=== PATIENT | female | born 1985 | race Caucasian/White ===

== ENCOUNTER 2018-10-16 19:30 | Emergency (ER) | payer OTHER ==
[~2018-10-16] VITALS: Ht 160 cm; Wt 87.3 kg
[~2018-10-16 19:30] MED LIST: IBUP-1542 PO; ONDA8TAB14 PO
[2018-10-16 19:58] VITALS: BP 118/87; PULSE 85; RESP 18; Ht 160 cm; Wt 87.3 kg
== END 2018-10-16 23:25 | disposition left against medical advice (07) ==
LOC: FTE 19:30
DX: Z53.21 Procedure and treatment not carried out due to patient leaving prior to being seen by health care provider (principal)

== ENCOUNTER 2018-11-30 19:31 | Emergency (ER) | payer OTHER ==
[~2018-11-30] VITALS: Ht 160 cm; Wt 81.5 kg
[2018-11-30 19:39] VITALS: Ht 160 cm; Wt 81.5 kg
[2018-11-30] MEDS ORDERED: SOD CHLORIDE 0.9% 1,000 ML IV STA (19:58)
[2018-11-30] MEDS ORDERED: METOCLOPRAMIDE 10 MG INJ IV ONE (20:00)
[2018-11-30] MEDS ORDERED: HYDROCODONE/APAP (10/325) TAB PO ONE (20:30)
[2018-11-30] MEDS ORDERED: METO5TAB58 PO (21:09)
--- NOTE | 2018-11-30 21:13 | ERD ---
ER Documentation Chief Complaint Chief Complaint Vomiting and unable to keep anything down hx achalasia HPI 33-year-old female history of achalasia of the esophagus who presents with nausea, pain and vomiting. She is set up for surgery for intervention. Presentation today is consistent with acute exacerbation of chronic issues. Pain is approximately 6 out of 10. She ran out of her Ralston and states that she would like to take Ralston for her pain. ROS All systems reviewed and are negative except as per history of present illness. Medications Home Meds Active Scripts Metoclopramide* (Reglan*) 5 Mg Tablet, 5 MG PO Q6H PRN for NAUSEA AND OR VOMITING, #20 TAB Prov:DIEGO HARRIS MD 11/30/18 Ibuprofen* (Motrin*) 600 Mg Tab, 600 MG PO Q6 for headache, #30 TAB Prov:HALINA RIVERA 09/24/18 Ondansetron (Ondansetron Odt) 8 Mg Tab.rapdis, 8 MG PO Q6H PRN for NAUSEA AND/OR VOMITING, #20 TAB Prov:HALINA RIVERA 09/24/18 Allergies Allergies: Coded Allergies: acetaminophen (Verified Allergy, Unknown, 11/30/18) haloperidol (Verified Allergy, Unknown, 11/30/18) hydrocodone (Verified Allergy, Unknown, 11/30/18) PMhx/Soc Medical and Surgical Hx: pt denies Surgical Hx Hx Miscellaneous Medical Probl: Yes (achalasia) Hx Alcohol Use: No Hx Substance Use: No Hx Tobacco Use: No Smoking Status: Never smoker FmHx Family History: No diabetes Physical Exam Vitals Vital Signs Date Temp Pulse Resp B/P (MAP) Pulse Ox O2 O2 Flow FiO2 Time Delivery Rate 11/30/18 97.4 84 16 117/60 100 19:39 (79) Physical Exam General: Well developed, well nourished, no acute distress Head: Normocephalic, atraumatic. Eyes: Pupils equally reactive, EOM intact ENT: Moist mucous membranes Neck: Supple, no lymphadenopathy Respiratory: Lungs clear bilaterally, no distress Cardiovascular: RRR, no murmurs, rubs, or gallops Abdominal: Soft, non-tender, non-distended, no peritoneal signs : Deferred MSK: No edema, no unilateral swelling, 5/5 strength Neurologic: Alert and oriented, moving all extremities, normal speech, no focal weakness, no cerebellar signs Skin: No rash Psych: Normal mood Result Diagram: 11/30/18200411/30/182004 Results 24 hrs Laboratory Tests Test 11/30/18 20:05 White Blood Count 12.6 10^3/ul Red Blood Count 5.16 10^6/ul Hemoglobin 11.1 g/dl Hematocrit 34.3 % Mean Corpuscular Volume 66.5 fl Mean Corpuscular Hemoglobin 21.5 pg Mean Corpuscular Hemoglobin Concent 32.4 g/dl Red Cell Distribution Width 16.6 % Platelet Count 272 10^3/UL Mean Platelet Volume 12.0 fl Immature Granulocytes % 0.300 % Neutrophils % 70.9 % Lymphocytes % 21.6 % Monocytes % 6.2 % Eosinophils % 0.7 % Basophils % 0.3 % Nucleated Red Blood Cells % 0.0 /100WBC Immature Granulocytes # 0.040 10^3/ul Neutrophils # 8.9 10^3/ul Lymphocytes # 2.7 10^3/ul Monocytes # 0.8 10^3/ul Eosinophils # 0.1 10^3/ul Basophils # 0.0 10^3/ul Nucleated Red Blood Cells # 0.0 10^3/ul Sodium Level 141 mmol/L Potassium Level 3.4 mmol/L Chloride Level 106 mmol/L Carbon Dioxide Level 23 mmol/L Anion Gap 12 Blood Urea Nitrogen 9 mg/dl Creatinine 0.83 mg/dl Est Glomerular Filtrat Rate mL/min > 60 mL/min Glucose Level 96 mg/dl Calcium Level 9.5 mg/dl Current Medications Medications Dose Sig/Ying Start Time Status Last (Trade) Ordered Route PRN Stop Time Admin Dose Reason Admin Sodium 1,000 ml @ Q1H STAT 11/30/18 DC 11/30/18 Chloride 1,000 mls/hr IV 19:58 20:12 11/30/18 20:57 5 mg ONCE ONCE 11/30/18 DC 11/30/18 Metoclopramid IV 20:00 20:12 e HCl 11/30/18 20:01 (Reglan) 1 tab ONCE ONCE 11/30/18 DC 11/30/18 Acetaminophen PO 20:30 20:37 / 11/30/18 20:31 Hydrocodone Bitart (Ralston ()) Procedures/MDM EKG, MONITORS, & DIAGNOSTIC IMAGING: EKG: I reviewed and interpreted a 12-lead EKG. Rhythm: Normal sinus rhythm ST Changes: No contiguous ST segment elevations T waves: No contiguous T wave inversions Impression: [No evidence of acute cardiac ischemia] LAB INTERPRETATION: I reviewed the laboratory testing and it shows [no evidence of acute process] MEDICAL DECISION MAKING: Patient presents with persistent nausea and vomiting in the setting of achalasia consistent with baseline. The patient is additionally asking for narcotic pain medications. Patient likely has chronic pain issues. The patient has a benign abdominal exam without signs or symptoms concerning for acute intraconal process. I do not believe this is consistent with cardiac etiology. EKG at triage ordered reflexively is normal. Labs to r/o dehydration appropriate. ER COURSE: * IVF and reglan and norco given. Pain improved, using cell phone without issues. * Labs reassuring, safe for dc CONSULTATION: [None] DISPOSITION PLAN: DC home with pmd follow up. GI follow up as already planned DC meds: Reglan Departure Diagnosis: Primary Impression: Achalasia Additional Impression: Nausea and vomiting Vomiting type: unspecified Vomiting Intractability: non-intractable Qualified Codes: R11.2 - Nausea with vomiting, unspecified Condition: Stable Patient Instructions: Nausea and Vomiting-Adult Referrals: COMMUNITY CLINICS YOU HAVE RECEIVED A MEDICAL SCREENING EXAM AND THE RESULTS INDICATE THAT YOU DO NOT HAVE A CONDITION THAT REQUIRES URGENT TREATMENT IN THE EMERGENCY DEPARTMENT. FURTHER EVALUATION AND TREATMENT OF YOUR CONDITION CAN WAIT UNTIL YOU ARE SEEN IN YOUR DOCTORS OFFICE WITHIN THE NEXT 1-2 DAYS. IT IS YOUR RESPONSIBILITY TO MAKE AN APPOINTMENT FOR FOLOW-UP CARE. IF YOU HAVE A PRIMARY DOCTOR --you should call your primary doctor and schedule an appointment IF YOU DO NOT HAVE A PRIMARY DOCTOR YOU CAN CALL OUR PHYSICIAN REFERRAL HOTLINE AT IF YOU CAN NOT AFFORD TO SEE A PHYSICIAN YOU CAN CHOSE FROM THE FOLLOWING [facility] [address] [place]. [facility] [address] [facility]. [facility] [address] [facility] [address] [facility] [address] [facility] [address] [facility]. [facility] YOU HAVE RECEIVED A MEDICAL SCREENING EXAM AND THE RESULTS INDICATE THAT YOU DO NOT HAVE A CONDITION THAT REQUIRES URGENT TREATMENT IN THE EMERGENCY DEPARTMENT. FURTHER EVALUATION AND TREATMENT OF YOUR CONDITION CAN WAIT UNTIL YOU ARE SEEN IN YOUR DOCTORS OFFICE WITHIN THE NEXT 1-2 DAYS. IT IS YOUR RESPONSIBILITY TO MAKE AN APPOINTMENT FOR FOLOW-UP CARE. IF YOU HAVE A PRIMARY DOCTOR --you should call your primary doctor and schedule and appointment IF YOU DO NOT HAVE A PRIMARY DOCTOR YOU CAN CALL OUR PHYSICIAN REFERRAL HOTLINE AT . IF YOU CAN NOT AFFORD TO SEE A PHYSICIAN YOU CAN CHOSE FROM THE FOLLOWING [facility] INSTITUTIONS: [facility] [address] [place] [address] [facility] [address] [place], [place] [id number] [place] [address] [address] [place] [address] Additional Instructions: Call your primary care doctor TOMORROW for an appointment during the next 1 WEEK.Tell the hand clipper that you were referred from this facility.See the doctor sooner or return here if your condition worsens before your appointment time. DIEGO HARRIS MD Nov 30, 2018 21:13
[2018-11-30 22:32] VITALS: BP 106/70; PULSE 70; RESP 16
== END 2018-11-30 22:33 | disposition home or self-care (01) ==
LOC: E/R 19:31
DX: K22.0 Achalasia of cardia (principal); R11.2 Nausea with vomiting, unspecified
CPT/HCPCS: 36415; 80048; 81025; 85025; 93005; 96374; 99284; J2765; J7030

== ENCOUNTER 2018-12-03 14:01 | Emergency (ER) | payer OTHER ==
[~2018-12-03] VITALS: Ht 162.6 cm; Wt 82.5 kg
[~2018-12-03 14:01] MED LIST changes: +METO5TAB58 PO
[2018-12-03 14:05] VITALS: BP 114/56; PULSE 114; RESP 18; Ht 162.6 cm; Wt 82.5 kg
[2018-12-03] MEDS ORDERED: IBUPROFEN 800 MG TAB PO ONE (14:30)
[2018-12-03] MEDS ORDERED: BROM2.5T16 PO (14:45)
[2018-12-03] MEDS ORDERED: LURA60TA PO (14:46)
[2018-12-03] MEDS ORDERED: BUPR150T6 PO (14:46)
[2018-12-03] MEDS ORDERED: HYDR-4011 PO (14:47)
[2018-12-03] MEDS ORDERED: TOPI100T11 PO (14:47)
--- NOTE | 2018-12-03 15:35 | ERD ---
ER Documentation Chief Complaint Chief Complaint cough and CP "All of the time" x last night HPI This is a 33-year-old female who complains of a fever of 100 degrees today with cough and sharp chest pain to the anterior chest wall with coughing. She had a cough for a few days and has occasional clear to white productive sputum. No shortness of breath or increased work of breathing or wheezing. No headache stiff neck photophobia no abdominal pain no dysuria or back pain. ROS All systems reviewed and are negative except as per history of present illness. Medications Home Meds Reported Medications Hydrocodone/Acetaminophen (Bovey 5-325 Tablet) 1 Each Tablet, 1 EACH PO BID, TAB 12/03/18 Topiramate* (Topiramate*) 100 Mg Tablet, 100 MG PO BID, TAB 12/03/18 Lurasidone Hcl (LATUDA) 60 Mg Tablet, 60 MG PO DAILY, #30 TAB 12/03/18 Bupropion Hcl* (Bupropion XL*) 150 Mg Tab.er.24h, 150 MG PO DAILY, TAB.SA 12/03/18 Bromocriptine Mesylate* (Parlodel*) 2.5 Mg Tablet, 2.5 MG PO BID, TAB 12/03/18 Discontinued Scripts Metoclopramide* (Reglan*) 5 Mg Tablet, 5 MG PO Q6H PRN for NAUSEA AND OR VOMITING, #20 TAB Prov:DIEGO HARRIS MD 11/30/18 Ibuprofen* (Motrin*) 600 Mg Tab, 600 MG PO Q6 for headache, #30 TAB Prov:HALINA RIVERA 09/24/18 Ondansetron (Ondansetron Odt) 8 Mg Tab.rapdis, 8 MG PO Q6H PRN for NAUSEA AND/OR VOMITING, #20 TAB Prov:HALINA RIVERA 09/24/18 Allergies Allergies: Coded Allergies: acetaminophen (Verified Allergy, Unknown, 12/03/18) haloperidol (Verified Allergy, Unknown, 12/03/18) hydrocodone (Verified Allergy, Unknown, 12/03/18) PMhx/Soc History of Surgery: No Hx Neurological Disorder: No Hx Respiratory Disorders: No Hx Cardiac Disorders: No Hx Psychiatric Problems: No Hx Miscellaneous Medical Probl: Yes (achalasia) Hx Alcohol Use: No Hx Substance Use: No Hx Tobacco Use: No Smoking Status: [facility] Family History: No coronary disease Physical Exam Vitals Vital Signs Date Temp Pulse Resp B/P (MAP) Pulse Ox O2 O2 Flow FiO2 Time Delivery Rate 12/03/18 100.0 14:31 12/03/18 100.0 114 18 114/56 97 14:05 (75) Physical Exam Const: Well-developed, well-nourished Head: Atraumatic, normocephalic Eyes: Normal Conjunctiva, PERRLA, EOMI, normal sclera, no nystagmus ENT: Normal External Ears, Nose and Mouth, moist mucus membranes. Neck: Full range of motion. No meningismus, no lymphadenopathy. Resp: Clear to auscultation bilaterally, no wheezing, rhonchi, rales Cardio: Regular rate and rhythm, no murmurs, S1 S2 present Abd: Soft, non tender x 4, non distended. Normal bowel sounds, no guarding or rebound, no pulsitile abdominal masses or bruits Skin: No petechiae or rashes, no ecchymosis , no maculopapular rash Back: No midline or flank tenderness Ext: No cyanosis, or edema, FROM x 4, normal inspection, neurovascularly intact x 4 Neur: Awake and alert, STR 5/5 x 4, sensation intact x 4, no focal findings, cerebellum intact Psych: Normal Mood and Affect Results 24 hrs Current Medications Medications Dose Sig/Ying Start Time Status Last (Trade) Ordered Route PRN Stop Time Admin Dose Reason Admin Ibuprofen 800 mg ONCE ONCE 12/03/18 DC 12/03/18 (Motrin) PO 14:30 14:31 12/03/18 14:31 Procedures/MDM Ordering MD: ENEDINA MAYES DO Location: E/R Room/Bed: PROCEDURE: XR Chest. CLINICAL INDICATION: Chest pain TECHNIQUE: Single frontal view of the chest was obtained COMPARISON: None FINDINGS: The heart and mediastinum are within normal limits. No discrete focal consolidation. There is no pleural effusion or pneumothorax. IMPRESSION: No acute cardiopulmonary process. RPTAT: QQ nabila Platt Physician Date Time Electronically viewed and signed by nabila Platt, Physician on 12/03/2018 15:02 rV/ CC: ENEDINA MAYES DO [id number] Patient does not have any pneumonia. Will discharge home with prednisone, albuterol and Z-Stephen and pain meds for chest wall strain Departure Diagnosis: Primary Impression: Bronchitis Additional Impression: Chest wall muscle strain Encounter type: initial encounter Qualified Codes: S29.011A - Strain of muscle and tendon of front wall of thorax, initial encounter Condition: Stable ENEDINA MAYES DO Dec 03, 2018 15:35
[2018-12-03] MEDS ORDERED: AZIT250T PO (15:36)
[2018-12-03] MEDS ORDERED: TRAM50TA2 PO (15:36)
[2018-12-03] MEDS ORDERED: ALBU8.5H8 INH (15:36)
[2018-12-03] MEDS ORDERED: PRED20TA PO (15:36)
== END 2018-12-03 16:05 | disposition home or self-care (01) ==
LOC: E/R 14:01
DX: S29.011A Strain of muscle and tendon of front wall of thorax, initial encounter (principal); J40 Bronchitis, not specified as acute or chronic; R07.89 Other chest pain; X58.XXXA Exposure to other specified factors, initial encounter; Y92.9 Unspecified place or not applicable
CPT/HCPCS: 71045; 93005

== ENCOUNTER 2018-12-14 07:37 | Emergency (ER) | payer OTHER ==
[~2018-12-14] VITALS: Ht 160 cm; Wt 71.0 kg
[~2018-12-14 07:37] MED LIST changes: +ALBU8.5H8 INH; +AZIT250T PO; +BROM2.5T16 PO; +BUPR150T6 PO; +HYDR-4011 PO; -IBUP-1542 PO; +LURA60TA PO; -METO5TAB58 PO; -ONDA8TAB14 PO; +PRED20TA PO; +TOPI100T11 PO; +TRAM50TA2 PO
[2018-12-14 07:40] VITALS: Ht 160 cm; Wt 71.0 kg
[2018-12-14] MEDS ORDERED: LIDOCAINE/MYLANTA 40 ML BTL PO STA (08:50)
[2018-12-14] MEDS ORDERED: ONDANSETRON (ODT) 4 MG TAB ODT STA (08:50)
--- NOTE | 2018-12-14 09:45 | PSY ---
Date/Time of Note Date/Time of Note DATE: 12/14/18 TIME: 11:39 Psychiatric Subjective Eval Consent Pt consented to telemedicine: Yes Subjective Evaluation Patient location: emergency Chief Complaint: NEEDS PSYCH EVAL , C/O TOOTH PAIN , BODY ACHE , TALKING ABOUT FBI History of present illness HPI: 33 yo female with ho schizophrenia, came to D reports she is being tortured by transmitters in her body, being monitored by FBI and other people. Reports the transmitter "corrects" her brain and transmits her "genius" thoughts to other people. Tells MD she has a "secret heart". Denies drug use use. Denies si or hi. Pt also told MD about someone she lives with is not helping her and reports her rent. Past Psych Hx: + ho psych admits and suicide attempts PMHx: reports she needs a blood transfusion and "eyeballs that are needed" and "brain tissue" Allergies: acetaminophen haloperidol, hydrocodone MSE: casually groomed, somewhat cooperative, pressured, restricted affect, disorganized, + delusions denies avh deenise si/hi poor insight Imp: 33 yo female very psychotic though functioning is unclear voluntary psych admit recommend parallel hx from family/roommate for more information about functioning [facility] utox For moderate agitation Zyprexa 5mg po prn For severe agitation chlorpromazine 25mg im prn Medical history Problems Medical Problems: (1) Achalasia Status: Acute (2) Bronchitis Status: Acute (3) Chest wall muscle strain Status: Acute (4) Headache Status: Acute (5) Nausea and vomiting Status: Acute (6) Patient left after triage Status: Acute (7) Vomiting Status: Acute (8) Vomiting Status: Acute Allergies: Coded Allergies: acetaminophen (Verified Allergy, Unknown, 12/14/18) haloperidol (Verified Allergy, Unknown, 12/14/18) hydrocodone (Verified Allergy, Unknown, 12/14/18) Psychiatric Objective Eval Mental Status Examination: Laboratory Results Laboratory Tests Test 12/14/18 08:28 12/14/18 08:51 Urine Color YELLOW Urine Clarity SLIGHTLY CLOUDY Urine pH 6.0 Urine Specific [place] 1.012 Urine Ketones NEGATIVE mg/dL Urine Nitrite NEGATIVE mg/dL Urine Bilirubin NEGATIVE mg/dL Urine Urobilinogen 1+ mg/dL Urine Leukocyte Esterase NEGATIVE Jeniffer/ul Urine Microscopic RBC 1 /HPF Urine Microscopic WBC 1 /HPF Urine Squamous Epithelial Cells FEW /HPF Urine Bacteria FEW /HPF Urine Mucus FEW /HPF Urine Hemoglobin NEGATIVE mg/dL Urine Glucose NEGATIVE mg/dL Urine Total Protein NEGATIVE mg/dl Urine Test NEGATIVE White Blood Count 14.2 10^3/ul Red Blood Count 5.08 10^6/ul Hemoglobin 10.8 g/dl Hematocrit 33.8 % Mean Corpuscular Volume 66.5 fl Mean Corpuscular Hemoglobin 21.3 pg Mean Corpuscular Hemoglobin Concent 32.0 g/dl Red Cell Distribution Width 16.6 % Platelet Count 317 10^3/UL Mean Platelet Volume 10.5 fl Immature Granulocytes % 0.800 % Neutrophils % 74.2 % Lymphocytes % 15.7 % Monocytes % 8.1 % Eosinophils % 0.8 % Basophils % 0.4 % Nucleated Red Blood Cells % 0.0 /100WBC Immature Granulocytes # 0.110 10^3/ul Neutrophils # 10.5 10^3/ul Lymphocytes # 2.2 10^3/ul Monocytes # 1.2 10^3/ul Eosinophils # 0.1 10^3/ul Basophils # 0.1 10^3/ul Nucleated Red Blood Cells # 0.0 10^3/ul Sodium Level 143 mmol/L Potassium Level 3.5 mmol/L Chloride Level 113 mmol/L Carbon Dioxide Level 20 mmol/L Anion Gap 10 Blood Urea Nitrogen 9 mg/dl Creatinine 0.80 mg/dl Est Glomerular Filtrat Rate mL/min > 60 mL/min Glucose Level 107 mg/dl Calcium Level 9.4 mg/dl Total Bilirubin 0.5 mg/dl Direct Bilirubin 0.00 mg/dl Indirect Bilirubin 0.5 mg/dl Aspartate Amino Transf (AST/SGOT) 19 IU/L Alanine Aminotransferase (ALT/SGPT) 16 IU/L Alkaline Phosphatase 76 IU/L Total Protein 7.1 g/dl Albumin 3.9 g/dl Globulin 3.20 g/dl Albumin/Globulin Ratio 1.21 Salicylates Level < 1.0 mg/dl Acetaminophen Level < 10.0 ug/ml Ethyl Alcohol Level < 10.0 mg/dl Assessment and Plan Recommendation/Plan Multiple antipsychotics: No Discharge Disposition: Psychiatric inpatient Legal Status: Voluntary RAN MENON Dec 14, 2018 09:45
--- NOTE | 2018-12-14 10:48 | ERD ---
ER Documentation Chief Complaint Chief Complaint NEEDS PSYCH EVAL , C/O TOOTH PAIN , BODY ACHE , TALKING ABOUT FBI HPI 33-year-old woman brought in by her mother for recent agitation, bizarre behavior, and delusions. She has been having magical thinking and reports various bizarre delusions regarding herself and her surroundings. She does have a history of psychiatric illness, and suicide at times. She states she has been using her medications as prescribed. She denies trauma, no fevers or chills, no chest pain or shortness of breath, no dysuria. ROS All systems reviewed and are negative except as per history of present illness. Medications Home Meds Active Scripts Albuterol Sulfate* (Proair HFA*) 8.5 Gm Hfa.aer.ad, 2 PUFF INH Q4, #1 INHALER Prov:ENEDINA MAYES DO 12/03/18 Tramadol HCl (Tramadol HCl) 50 Mg Tablet, 50 MG PO Q6, #20 TAB Prov:ENEDINA MAYES DO 12/03/18 Reported Medications Hydrocodone/Acetaminophen (Quinn 5-325 Tablet) 1 Each Tablet, 1 EACH PO BID, TAB 12/03/18 Topiramate* (Topiramate*) 100 Mg Tablet, 100 MG PO BID, TAB 12/03/18 Lurasidone Hcl (LATUDA) 60 Mg Tablet, 60 MG PO DAILY, #30 TAB 12/03/18 Bupropion Hcl* (Bupropion XL*) 150 Mg Tab.er.24h, 150 MG PO DAILY, TAB.SA 12/03/18 Bromocriptine Mesylate* (Parlodel*) 2.5 Mg Tablet, 2.5 MG PO BID, TAB 12/03/18 Discontinued Scripts Prednisone* (Prednisone*) 20 Mg Tab, 40 MG PO DAILY for 4 Days, TAB Prov:ENEDINA MAYES DO 12/03/18 Azithromycin* (Zithromax*) 250 Mg Tablet, 250 MG PO .ZPACK DIRECTED, #6 TAB TAKE 500 MG (2 TABS) THE FIRST DAY THEN 250 MG (1 TAB) DAYS 2-5 Prov:ENEDINA MAYES DO 12/03/18 Allergies Allergies: Coded Allergies: acetaminophen (Verified Allergy, Unknown, 12/14/18) haloperidol (Verified Allergy, Unknown, 12/14/18) hydrocodone (Verified Allergy, Unknown, 12/14/18) PMhx/Soc Psychosis, schizophrenia Medical and Surgical Hx: pt denies Medical Hx, pt denies Surgical Hx History of Surgery: No Hx Neurological Disorder: No Hx Respiratory Disorders: No Hx Cardiac Disorders: No Hx Psychiatric Problems: No Hx Miscellaneous Medical Probl: Yes (achalasia, Pre diabetes) Hx Alcohol Use: No Hx Substance Use: No Hx Tobacco Use: No Smoking Status: Never smoker Physical Exam Vitals Vital Signs Date Temp Pulse Resp B/P (MAP) Pulse Ox O2 O2 Flow FiO2 Time Delivery Rate 12/14/18 98.1 89 18 117/71 98 07:40 (86) Physical Exam GENERAL: Well-developed, well-nourished, well-hydrated, agitated, afebrile NEURO: Alert and oriented 3, cranial nerves II through XII intact bilaterally, pupils equal round reactive to light, no focal deficits or facial asymmetry, sensation intact distally Strength 5/5 in upper and lower extremities bilaterally CARDIAC: Regular rate and rhythm, no murmurs rubs or gallops LUNGS: Clear bilaterally no wheezing crackles or stridor SKIN: Warm and dry to touch, no abrasions, contusions, or hematomas, no lacerations, no ecchymosis, no target lesions, and without ulcers EXTREMITIES: No clubbing cyanosis or edema, calves are bilaterally symmetrical, no Homans sign, no popliteal cord sign. Distal pulses equal and bilateral PSYCH: Psychotic Result Diagram: 12/14/18 0851 12/14/18 0851 Results 24 hrs Laboratory Tests Test 12/14/18 08:28 12/14/18 08:51 Urine Color YELLOW Urine Clarity SLIGHTLY CLOUDY Urine pH 6.0 Urine Specific [place] 1.012 Urine Ketones NEGATIVE mg/dL Urine Nitrite NEGATIVE mg/dL Urine Bilirubin NEGATIVE mg/dL Urine Urobilinogen 1+ mg/dL Urine Leukocyte Esterase NEGATIVE Jeniffer/ul Urine Microscopic RBC 1 /HPF Urine Microscopic WBC 1 /HPF Urine Squamous Epithelial Cells FEW /HPF Urine Bacteria FEW /HPF Urine Mucus FEW /HPF Urine Hemoglobin NEGATIVE mg/dL Urine Glucose NEGATIVE mg/dL Urine Total Protein NEGATIVE mg/dl Urine Test NEGATIVE Urine Opiates Screen Negative Urine Barbiturates Negative Urine Amphetamines Screen Negative Urine Benzodiazepines Screen Negative Urine Cocaine Screen Negative Urine Cannabinoids Negative White Blood Count 14.2 10^3/ul Red Blood Count 5.08 10^6/ul Hemoglobin 10.8 g/dl Hematocrit 33.8 % Mean Corpuscular Volume 66.5 fl Mean Corpuscular Hemoglobin 21.3 pg Mean Corpuscular Hemoglobin Concent 32.0 g/dl Red Cell Distribution Width 16.6 % Platelet Count 317 10^3/UL Mean Platelet Volume 10.5 fl Immature Granulocytes % 0.800 % Neutrophils % 74.2 % Lymphocytes % 15.7 % Monocytes % 8.1 % Eosinophils % 0.8 % Basophils % 0.4 % Nucleated Red Blood Cells % 0.0 /100WBC Immature Granulocytes # 0.110 10^3/ul Neutrophils # 10.5 10^3/ul Lymphocytes # 2.2 10^3/ul Monocytes # 1.2 10^3/ul Eosinophils # 0.1 10^3/ul Basophils # 0.1 10^3/ul Nucleated Red Blood Cells # 0.0 10^3/ul Sodium Level 143 mmol/L Potassium Level 3.5 mmol/L Chloride Level 113 mmol/L Carbon Dioxide Level 20 mmol/L Anion Gap 10 Blood Urea Nitrogen 9 mg/dl Creatinine 0.80 mg/dl Est Glomerular Filtrat Rate mL/min > 60 mL/min Glucose Level 107 mg/dl Calcium Level 9.4 mg/dl Total Bilirubin 0.5 mg/dl Direct Bilirubin 0.00 mg/dl Indirect Bilirubin 0.5 mg/dl Aspartate Amino Transf (AST/SGOT) 19 IU/L Alanine Aminotransferase (ALT/SGPT) 16 IU/L Alkaline Phosphatase 76 IU/L Total Protein 7.1 g/dl Albumin 3.9 g/dl Globulin 3.20 g/dl Albumin/Globulin Ratio 1.21 Salicylates Level < 1.0 mg/dl Acetaminophen Level < 10.0 ug/ml Ethyl Alcohol Level < 10.0 mg/dl Current Medications Medications Dose Sig/Ying Start Time Status Last (Trade) Ordered Route PRN Stop Time Admin Dose Reason Admin 40 ml ONCE STAT 12/14/18 DC 12/14/18 Miscellaneous PO 08:50 09:06 Medication 12/14/18 08:52 (Gi Cocktail (2)) Ondansetron 4 mg ONCE STAT 12/14/18 DC 12/14/18 HCl (Zofran ODT 08:50 09:06 Odt) 12/14/18 08:52 Procedures/MDM Security one-to-one watch was established and tele-psychiatry was consulted. Patient had complaints of mild epigastric discomfort so I administered a GI cocktail p.o. CBC and electrolytes were within normal limits, liver function tests normal, urinalysis negative for infection, test negative, drug screen negative, ethanol level negative. Tele-psychiatry recommended voluntary psychiatric hold in a facility has been contacted and accepted the patient. Patient's behavioral symptoms have stabilized while in the department. Patient is medically cleared and appropriate for psychiatric evaluation and work up. No e/o neurologic, toxic, infectious, or metabolic cause. Observation Note: Time: 5 hours Family Hx: No Hypertension Evaluation: Multiple exams showed improving symptoms and no evidence of worsening mental status or abnormal vital signs Departure Diagnosis: Primary Impression: Psychosis Psychosis type: unspecified psychosis type Qualified Codes: F29 - Unspecified psychosis not due to a substance or known physiological condition Condition: RIGO Hart MD Dec 14, 2018 10:48
[2018-12-14 11:03] VITALS: BP 113/69; PULSE 71; RESP 18
== END 2018-12-14 11:04 | disposition home or self-care (01) ==
LOC: E/R 07:37
DX: F29 Unspecified psychosis not due to a substance or known physiological condition (principal); R40.2142 Coma scale, eyes open, spontaneous, at arrival to emergency department; R40.2362 Coma scale, best motor response, obeys commands, at arrival to emergency department
CPT/HCPCS: 36415; 80053; 80307; 81001; 81003; 84703; 85025; 99283

== ENCOUNTER 2018-12-23 15:26 | Emergency (ER) | payer OTHER ==
[~2018-12-23 15:26] MED LIST changes: -AZIT250T PO; -PRED20TA PO
== END 2018-12-23 16:19 | disposition left against medical advice (07) ==
LOC: E/R 15:26
DX: Z53.21 Procedure and treatment not carried out due to patient leaving prior to being seen by health care provider (principal)